=== PATIENT | male | born 1990 | race Caucasian/White ===

== ENCOUNTER 2017-02-02 21:51 | Emergency (ER) | payer OTHER ==
[2017-02-02 22:29] VITALS: BP 112/69
--- NOTE | 2017-02-03 04:24 | ER Document Report ---
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 The head came down on the back of his head and his face went forward hitting the car. His tooth punctured his lower lip. He did chip his tooth. Shortly after he hit his head he did pass out. He is on blood thinners. He has previous history of a concussion in the past. Denies any vomiting. He said some mild nausea. He denies any other injuries other than some pain throughout his face and jaw. TRAVEL OUTSIDE OF THE [place] IN LAST 30 DAYS: No - Related Data Allergies/Adverse Reactions: No Known Allergies Allergy (Unverified 02/02/17 22:29) Past Medical History - Social History Smoking Status: Never Smoker Frequency of alcohol use: None Drug Abuse: None Family History: Reviewed & Not Pertinent Patient has suicidal ideation: No Patient has homicidal ideation: No Renal/ Medical History: Denies: Hx Peritoneal Dialysis Review of Systems - Review of Systems Notes: My Normal Review Basic REVIEW OF SYSTEMS: CONSTITUTIONAL : Denies fever, chills, or sweats. Denies recent illness. RESPIRATORY: Denies cough, cold, or chest congestion. Denies shortness of breath, difficulty breathing, or wheezing. GASTROINTESTINAL: Denies abdominal pain. Denies nausea, vomiting, or diarrhea. Denies constipation. Last BM: MUSCULOSKELETAL: Denies neck or back pain or joint pain or swelling. SKIN: Denies rash or skin lesions. NEUROLOGICAL: Had a loss of consciousness. Has a headache. Denies weakness or paralysis or loss of use of either side. Denies problems with gait or speech. Denies sensory or motor loss. ALL OTHER SYSTEMS REVIEWED AND NEGATIVE. Physical Exam - Vital signs Vitals: Temp Pulse Resp BP Pulse Ox 97.9 F 55 L 18 112/69 100 02/02/17 22:25 02/02/17 22:25 02/02/17 22:25 02/02/17 22:25 02/02/17 22:25 - Notes Notes: General Appearance: Well nourished, alert, cooperative, no acute distress, no obvious discomfort. Well-appearing. Vitals: reviewed, See vital signs table. Head: Some pain to palpation over the jaw. Mild pain with opening closing the jaw. Patient does have a fractured left upper incisor. Small puncture wound from the inside of the lip. Patient does have a small non-gaping laceration just below the lower lip. No active bleeding. Eyes: PERRL, EOMI, Conjuctiva clear Mouth: No decreasd moisture Throat: No tonsillar inflammation, No airway obstruction, No lymphadenopathy Neck: Supple, no neck tenderness Lungs: No wheezing, No rales, No rhonci, No accessory muscle use, good air exchange bilaterally. Heart: Normal rate, Regular rythm, No murmur, no rub Extremities: strength 5/5 in all extremities, good pulses in all extremities, no swelling or tenderness in the extremities, no edema. Skin: warm, dry, appropriate color, no rash Neuro: speech clear, oriented x 3, normal affect, responds appropriately to questions. Cranial nerves II through XII are intact. Distal sensation intact. Normal gait. Normal Romberg. Course - Vital Signs Vital signs: Temp Pulse Resp BP Pulse Ox 97.9 F 55 L 18 112/69 100 02/02/17 22:25 02/02/17 22:25 02/02/17 22:25 02/02/17 22:25 02/02/17 22:25 - Transfer of Care Notes: 02/03/17 05:[address] scans are negative. Most likely suffered a concussion. This is second concussion. Informed him that he cannot do any activities which would cause any chances of trauma to his head for at least 2 weeks. Patient is [employer]. Informed him that he needs to be cleared by his [place] medical doctor before returning to work. I will give him 2 days off work to follow-up with his own pace medical doctor. Patient encouraged return to ER immediately if he has fevers, vomiting, or feels unwell. The small laceration just below the lower lip was cleaned with peroxide and then closed with Dermabond. This laceration most likely is a continuation of the puncture from the tooth from the inside of mouth. Dictation of this chart was performed using voice recognition software; therefore, there may be some unintended grammatical errors. Discharge - Discharge Clinical Impression: Laceration Concussion Qualifiers: Encounter type: initial encounter Loss of consciousness presence/duration: with LOC of unspecified duration Qualified Code(s): S06.0X9A - Concussion with loss of consciousness of unspecified duration, initial encounter Chipped tooth Qualifiers: Encounter type: initial encounter Fracture type: closed Qualified Code(s): S02.5XXA - Fracture of tooth (traumatic), initial encounter for closed fracture Condition: Good Disposition: HOME, SELF-CARE Additional Instructions: Concussion You have suffered a concussion -- a temporary loss of certain brain functions due to a mild brain injury. The recovery is usually rapid and complete. The temporary problems occurring with a concussion can include loss of consciousness, dizziness, nausea, vomiting, and confusion. Repeat concussions can cause brain damage. In the future, avoid activities that will cause a blow to your head. Wear a helmet for sports such as snowboarding, biking, or skating. It's important that someone be with you for the first 24 hours. During this time, do not exercise or drive a vehicle. Do not take any pain medication stronger than acetaminophen unless prescribed by the physician. Any significant changes should be reported immediately to the physician. Signs of a problem may include: (1) Mental confusion (2) Incoordination or staggering (3) Repeated or forceful vomiting (4) Clear or bloody drainage from ear, mouth, or nose (5) Severe headache, not relieved by acetaminophen or prescribed pain medication (6) Failure to improve in 24 hours Please call the [place] base medical clinic today to make a close follow up appointment. Do not return to duty until cleared by them. Please do not participate in any activities that could cause potential trauma to your head for at least 2 weeks. Return to the ER if you have recurrent vomiting, worsening headaches, or feel unwell. Forms: Special Work Note, Return to Work
== END 2017-02-03 04:50 | disposition home or self-care (01) ==
LOC: ER 21:51
DX: S06.0X9A Concussion with loss of consciousness of unspecified duration, initial encounter (principal); S02.5XXA Fracture of tooth (traumatic), initial encounter for closed fracture; S01.81XA Laceration without foreign body of other part of head, initial encounter; S01.531A Puncture wound without foreign body of lip, initial encounter; W20.8XXA Other cause of strike by thrown, projected or falling object, initial encounter; Y93.89 Activity, other specified; R11.0 Nausea; R51 Headache; R68.84 Jaw pain
CPT/HCPCS: 70450; 70486; 99284